=== PATIENT | male | born 1980 | race African-American/Black ===

== ENCOUNTER 2019-09-01 16:17 | Emergency (ER) | payer SELFPAY ==
--- NOTE | 2019-09-01 16:28 | PDOC ---
Rapid Medical Evaluation Chief Complaint: Pain Time Seen by Provider: 09/01/19 16:25 Medical Evaluation: 09/01/19 16:27 I performed a brief in-person evaluation of this patient. Pt is a 39 y/o male with no past medical history who presents with R knee pain after hitting it at work yesterday on a ladder. He has been walking on it. States the pain is to the superior aspect of the knee. Has not taken anything for pain. Pertinent physical exam findings: pt able to straight leg raise, walking with limp I have ordered the following: R knee xray Patient to proceed to ED for further evaluation. Discharge Disposition - Diagnosis Right knee pain - Referrals - Patient Instructions - Post Discharge Activity
[2019-09-01 16:29] VITALS: BP 130/85; PULSE 85; TEMP 98.4; BMI 38.4
[2019-09-01] MEDS ORDERED: IBUPROFEN 600 MG TABLET (FP) PO ONE (18:20)
--- NOTE | 2019-09-01 18:21 | PDOC ---
History of Present Illness - General Chief Complaint: Pain Stated Complaint: RT KNEE INJURY Time Seen by Provider: 09/01/19 16:25 History Source: Patient Exam Limitations: No Limitations - History of Present Illness Initial Comments: 09/01/19 18:18 39-year-old male denies past medical history presents complaining of right knee pain since yesterday. Patient was at work climbing a ladder when he felt a twisting painful movement. Denies striking the ground, headache, neck pain, sustaining any other injuries or any other complaints. Patient did not take any pain medication. ROS: R knee pain PE: GENERAL: well-appearing, NAD HEAD: NCAT EYES: Pupils equal, round and reactive to light, sclera anicteric, conjunctiva clear ENT: pharynx: no erythema, no exudate, uvula midline NECK: supple CHEST: nontender RESP: clear, no w/r/r CARDIO: rrr, no m/g/r ABD: +BS, soft, nontender, non distended BACK: no midline spinal ttp, no CVAT EXTREMITIES: R knee: Positive crepitus, no laxity, no swelling, no tenderness to palpation, normal range of motion NEUROLOGICAL: Normal speech, walking with slight SKIN: Warm, Dry Is this a multiple visit Asthma Patient?: No Past History - Medical History Allergies/Adverse Reactions: Allergies Allergy/AdvReac Type Severity Reaction Status Date / Time No Known Allergies Allergy Verified 09/01/19 16:29 COPD: No - Psycho-Social/Smoking History Smoking History: Never smoked - Substance Abuse Hx (Audit-C & DAST Scrn) How often the patient has a drink containing alcohol: Monthly or less Score: In Men: 4 or > Positive; In Women: 3 or > Positive: 1 Screen Result (Pos requires Nsg. Audit-10AR): Negative *Physical Exam - Vital Signs Last Vital Signs Temp Pulse Resp BP Pulse Ox 98.4 F 85 18 130/85 99 09/01/19 16:26 09/01/19 16:26 09/01/19 16:26 09/01/19 16:26 09/01/19 16:26 Medical Decision Making - Medical Decision Making 09/01/19 18:20 39-year-old male denies past medical history presents complaining of right knee pain since yesterday. Patient was at work climbing a ladder when he felt a twisting painful movement. Denies striking the ground, headache, neck pain, sustaining any other injuries or any other complaints. Patient did not take any pain medication. Right knee x-ray negative P.o. ibuprofen Larry bandage applied Advised to follow-up with PMD Discharge - Discharge Information Problems reviewed: Yes Clinical Impression/Diagnosis: Right knee pain Qualifiers: Chronicity: acute Qualified Code(s): M25.561 - Pain in right knee Condition: Stable Disposition: HOME - Admission No - Follow up/Referral - Patient Discharge Instructions Additional Instructions: Rest, wear Larry bandage for comfort Take ibuprofen 600 every 6 hours as needed for pain Follow-up with your doctor within 1 week Apply ice several times a day for the next 2 days Note for work provided - Post Discharge Activity Work/Back to School Note: Back to Work
== END 2019-09-01 18:24 | disposition home or self-care (01) ==
LOC: JERFT 16:17
DX: M25.561 Pain in right knee (principal)
CPT/HCPCS: 73562-TC-RT-FY; 99283-25

== ENCOUNTER 2023-02-08 16:36 | Emergency (ER) | payer BC, OTHER ==
[2023-02-08 16:47] VITALS: BP 144/64; PULSE 92; RESP 18; TEMP 98.1; BMI 41.3
[2023-02-08] MEDS ORDERED: ACETAMINOPHEN 500 MG TABLET (FP) PO ONE (18:10)
[2023-02-08] MEDS ORDERED: ACETAMINOPHEN 500 MG TABLET (FP) ONE (18:58)
== END 2023-02-08 18:59 | disposition home or self-care (01) ==
LOC: JERFT 16:36
DX: M25.562 Pain in left knee (principal)
CPT/HCPCS: 73562-TC-LT-FY; 99283-25